=== PATIENT | female | born 1965 | race Caucasian/White ===

== ENCOUNTER → 2018-04-26 | Outpatient (CLI) | payer OTHER ==
[~2018-04-26] MED LIST: ASPI-621 PO; LEVO100T5 PO; VITAMIN D PO
== END | disposition home or self-care (01) ==
LOC: STAR 14:21
PROVIDERS: ATTEND Orthopaedic Surgery
DX: Z02.9 Encounter for administrative examinations, unspecified (principal)

== ENCOUNTER 2018-05-03 09:36 | Day surgery (SDC) | payer OTHER ==
[~2018-05-03] VITALS: Ht 162.6 cm; Wt 82.2 kg
[~2018-05-03 09:36] MED LIST changes: +BUPIVACAINE/PF 0.5% ONE; +BUPIVACAINE/PF-EPI 0.5% 1:200K ONE; +FENTANYL PF 100 MCG/2ML ONE; +LIDOCAINE 1%-EPI 1:100K, 30ML ONE; +LIDOCAINE-MPF 2% ,5ML ONE; +MIDAZOLAM 1 MG/ML, 2ML ONE; +ROPIvacaine/PF 0.5%, 30 ML ONE
[2018-05-03] MEDS ORDERED: LACTATED RINGERS 1,000 ML IV SCH (10:05)
[2018-05-03] MEDS ORDERED: ONDANSETRON ODT 8 MG PO ONE (10:30)
[2018-05-03] MEDS ORDERED: GABAPENTIN 300 MG CAPSULE PO ONE (10:30)
[2018-05-03] MEDS ORDERED: ACETAMINOPHEN 500 MG TABLET PO ONE (10:30)
[2018-05-03] MEDS ORDERED: KETOROLAC 30 MG/1 ML ONE (11:14)
[2018-05-03] MEDS ORDERED: OXYcodone 5 MG/5 ML ORAL.SOL UDC PO PRN (12:00)
[2018-05-03] MEDS ORDERED: MEPERIDINE/PF 25MG/0.5ML IVPush PRN (12:00)
[2018-05-03] MEDS ORDERED: hydrALAzine 20 MG/ML, 1ML IV PRN (12:00)
[2018-05-03] MEDS ORDERED: ONDANSETRON 2MG/ML, 2ML IV PRN (12:00)
[2018-05-03] MEDS ORDERED: EPHEDRINE 50 MG/ML, 1ML IM PRN (12:00)
[2018-05-03] MEDS ORDERED: ALBUTEROL/IPRATROPIUM 2.5MG/0.5MG, 3 ML NPPB PRN (12:00)
[2018-05-03] MEDS ORDERED: PROMETHAZINE 25 MG SUPP PR PRN (12:00)
[2018-05-03] MEDS ORDERED: SCOPOLAMINE PATCH, 1.5MG PATCH.TD72 TD PRN (12:00)
[2018-05-03] MEDS ORDERED: HYDROmorphone 1 MG/ML, 1ML IV PRN (12:00)
[2018-05-03] MEDS ORDERED: MIDAZOLAM 1 MG/ML, 2ML IV PRN (12:00)
[2018-05-03] MEDS ORDERED: DEXAMETHASONE 4 MG/ML, 1ML ONE (12:36)
[2018-05-03] MEDS ORDERED: CEFAZOLIN 1,000 MG ONE (12:36)
[2018-05-03] MEDS ORDERED: PROPOFOL 10 MG/ML, 20ML ONE (12:36)
[2018-05-03] MEDS ORDERED: FENTANYL PF 100 MCG/2ML ONE (13:00)
[2018-05-03] MEDS ORDERED: OXYcodone 5 MG/5 ML ORAL.SOL UDC ONE (13:01)
[2018-05-03] MEDS: FENTANYL PF 100 MCG/2ML IV PRN ×2 (13:10→13:35)
[2018-05-04] MEDS ORDERED: LEVOTHYROXINE 100 MCG TABLET PO SCH (09:00)
[2018-05-04] MEDS ORDERED: ASPIRIN 81 MG TABLET EC PO SCH (09:00)
== END 2018-05-03 19:10 | disposition home or self-care (01) ==
LOC: OUT 09:36
PROVIDERS: ATTEND Orthopaedic Surgery
DX: S83.512A Sprain of anterior cruciate ligament of left knee, initial encounter (principal); S83.282A Other tear of lateral meniscus, current injury, left knee, initial encounter; X58.XXXA Exposure to other specified factors, initial encounter; M65.862 Other synovitis and tenosynovitis, left lower leg; Y93.89 Activity, other specified; Y92.89 Other specified places as the place of occurrence of the external cause; Y99.8 Other external cause status; Z98.890 Other specified postprocedural states; Z79.82 Long term (current) use of aspirin; Z79.899 Other long term (current) drug therapy; Z87.891 Personal history of nicotine dependence; Z72.89 Other problems related to lifestyle; Z86.718 Personal history of other venous thrombosis and embolism
CPT/HCPCS: 29881; 29888; 64447; C1713; J0690; J1100; J1885; J2250; J2405; J2704; J2795; J3010; J3490; J7120; Q0162